=== PATIENT | male | born 1960 | race Caucasian/White ===

== ENCOUNTER 2018-07-23 15:00 | Inpatient (IN) | payer BC ==
--- NOTE | 2018-07-22 12:56 | HP ---
HISTORY AND PHYSICAL: DATE OF ADMISSION/SURGERY: 07/30/18 DATE OF OFFICE VISIT: 07/22/18 SURGEON: Trini Khanna MD* (dictated by KAUSHAL Lewis) PROCEDURE: Left total hip arthroplasty. CHIEF COMPLAINT: Left hip pain. HISTORY OF PRESENT ILLNESS: Mr. Arizmendi is a 57-year-old gentleman with complaints of left hip pain. He has failed conservative treatment and elected to proceed with the left total hip arthroplasty. PAST MEDICAL HISTORY: High cholesterol, chronic low back pain, Castle's esophagus, GERD, BPH, and sleep apnea. PAST SURGICAL HISTORY: Lumbar fusion, deviated septum surgery, hernia repair, tonsillectomy, appendectomy. CURRENT MEDICATIONS: 1. Flexeril 10 mg q.h.s. 2. Vitamin D3. 3. Vitamin C. 4. Pantoprazole sodium 40 mg twice a day. 5. JANKI-e 400 mg twice a day. 6. Vitamin B12. 7. Flomax 0.4 mg daily. 8. CoQ10. 9. Rosuvastatin calcium 5 mg at bedtime. 10. Hydromorphone 4 mg 3 times a day. 11. Ginseng 1000 mg a day. 12. Magnesium 500 mg a day. 13. Tylenol as needed. 14. Pristiq 100 mg daily. ALLERGIES: No known drug allergies. FAMILY HISTORY: Coronary artery disease and cancer. SOCIAL HISTORY: He is a 57-year-old gentleman, lives with his . He denies use of tobacco or illicit drugs. REVIEW OF SYSTEMS: A complete 14-point review of systems was reviewed with the patient and is positive for GERD. He denies any history of DVT, PE, hepatitis, HIV or anesthesia problems. PHYSICAL EXAMINATION GENERAL: He is well developed, well nourished, in no acute distress. VITAL SIGNS: He stands 6 feet 3 inches tall, weighs 240 pounds. His blood pressure is 112/70, his heart rate is 75. HEENT: Normocephalic, atraumatic. NECK: Supple. No palpable lymph nodes. PULMONARY: The lungs are clear to auscultation bilaterally. CARDIO: Regular rate and rhythm. Strong S1 and S2. ABDOMEN: Soft, nontender, nondistended. NEUROLOGICAL: He is alert and oriented x3. MUSCULOSKELETAL: Left lower extremity: The skin is intact. There are no open wounds or abrasions. He walks with an antalgic-type gait, favoring his left hip. He has decreased internal and external rotation of the hip. He has a 2+ dorsalis pedis pulse. Intact sensation in his lower extremity. Muscle group strengths are intact at 5/5. ASSESSMENT AND PLAN: Mr. Arizmendi is a 57-year-old gentleman with end-stage osteoarthritis of the left hip. He has failed conservative treatment and elected to proceed with a left total hip arthroplasty. The surgery is scheduled for 07/30/[address] Khanna discussed the risks and benefits of the surgery at today's visit and all of his questions were answered. He will follow up with Dr. Khanna in 2 weeks after the surgery. KAUSHAL LEWIS [id number]/[facility] #: [id number] MTDD
[2018-07-26] MEDS ORDERED: Buffered Lidocaine 1% SYRIN* 1 ML/SYRINGE INTRADERM ONE (12:13)
[2018-07-30] MEDS ORDERED: Dexamethasone IV* 4 MG/ML 1 ML (4 MG) IV SLOW PU ONE (06:00)
[2018-07-30] MEDS ORDERED: Ondansetron INJ* 2 MG/ML VIAL IV ONE (06:00)
[2018-07-30] MEDS ORDERED: Famotidine IV* 10 MG/ML 2 ML (20 mg) IV ONE (06:00)
[2018-07-30] MEDS ORDERED: Lactated Ringers 1000 ML Bag* 1,000 ML IV SCH (06:00)
[2018-07-30] MEDS ORDERED: Gabapentin CAP(*) 300 MG PO ONE (06:00)
--- NOTE | 2018-09-10 11:44 | HP ---
AMENDED REPORT NOW INCLUDES DESIGNATED COSIGNER HISTORY AND PHYSICAL: DATE OF SURGERY: 09/19/18 DATE OF OFFICE VISIT: 09/09/18 SURGEON: Trini Khanna MD.* (DICTATED BY KAUSHAL LEWIS) PROCEDURE: Left total hip arthroplasty. CHIEF COMPLAINT: Left hip pain. HISTORY OF PRESENT ILLNESS: Mr. Arizmendi is a 58-year-old gentleman with continued complaints of left hip pain. He has failed conservative treatment and elected to proceed with a left hip total arthroplasty. PAST MEDICAL HISTORY: High cholesterol, Castle's esophagus, and WALT. PAST SURGICAL HISTORY: L4-S1 fusion, deviated septum surgery, hernia repair, appendectomy, tonsillectomy. CURRENT MEDICATIONS: 1. Flexeril 10 mg as needed. 2. Vitamin D3. 3. Vitamin C. 4. Pantoprazole sodium 40 mg twice a day. 5. Vitamin B12. 6. Flomax 0.4 mg daily. 7. Desvenlafaxine 50 mg daily. 8. CoQ10. 9. Rosuvastatin calcium 5 mg at bedtime. 10. Hydromorphone 4 mg 1 to 2 tabs every 6 hours as needed. 11. Ginseng. 12. Magnesium. 13. Tylenol. ALLERGIES: No known drug allergies. FAMILY HISTORY: Cancer, coronary artery disease, and MS. SOCIAL HISTORY: He is 58 years old. He lives with his . Does not smoke or use drugs. Uses occasional alcohol. REVIEW OF SYSTEMS: A complete 14-point review of systems is reviewed with the patient, was all negative, but noncontributory. He denies history of a DVT, PE , hepatitis, HIV or anesthesia problems. PHYSICAL EXAMINATION GENERAL: He is well developed, well nourished, in no acute distress. VITAL SIGNS: He stands 75 inches tall, weighs 240 pounds. Blood pressure is 112/70, heart rate is 75. HEENT: Normocephalic, atraumatic. NECK: Supple. No palpable lymph nodes. PULMONARY: Lungs are clear to auscultation bilaterally. CARDIO: Regular rate and rhythm. Strong S1 and S2. ABDOMEN: Soft, nontender, nondistended. NEUROLOGIC: He is alert and oriented x3. MUSCULOSKELETAL: Left lower extremity: The skin is intact. There are no open wounds or abrasions. He walks with an antalgic type gait favoring his left hip. He has decreased internal and external rotation of the legs. He is able to dorsiflex and plantar flex. He has a 2+ dorsalis pedis pulse. ASSESSMENT AND PLAN: Mr. Arizmendi is a 58-year-old gentleman with end-stage osteoarthritis of the left hip. He has failed conservative treatment and elected to proceed with a left total hip arthroplasty. The surgery is scheduled for 09/19/[address] Khanna discussed the risks and benefits of the surgery at today's visit and all of his questions were answered. He will follow up with Dr. Khanna 2 weeks after the surgery KAUSHAL LEWIS [id number]/[facility] #: [id number] MTDD
[2018-09-18] MEDS ORDERED: Buffered Lidocaine 1% SYRIN* 1 ML/SYRINGE INTRADERM ONE (11:12)
[2018-09-19] MEDS ORDERED: Tranexamic Acid 1,000 MG in NS 0.9% 50 ML* (outpatient use) IV SCH ×2
--- OUTSIDE RECORDS SUMMARY | 2018-09-19 05:39 | XMS REPORT | Continuity of Care Document ---
:1960 External Reference #:[id number] Author Name Esperanza Swain Care Team Providers Name Role Phone Charly Traylor MD Primary Care Physician Unavailable Payers Date Identification Numbers Payment Provider Subscriber Policy Number: [id number] [facility] Marilee Ratliff PayID: [id number] [address] [place] [address] Expires: 2016 Policy Number: [id number] [facility] Anette Schwarz Group Number: [id number] [address] PayID: [id number] [place] [address] Problems Active Problems Provider Date Localized, primary osteoarthritis of the pelvic Trini Khanna M.D. Onset: region and thigh Localized, primary osteoarthritis Trini Khanna M.D. Onset: 08/15/2017 Spinal stenosis of lumbar region Arvind Toledo M.D. Onset: 04/28/2015 Degeneration of lumbar intervertebral disc Arvind Toledo M.D. Onset: 2015 Lumbosacral spondylosis without myelopathy Mor Blackwood M.D. Onset: 2013 Inflammatory and toxic neuropathy Mor Blackwood M.D. Onset: 07/10/2013 Immunological Findings Nonspecified Other & Mor Blackwood M.D. Onset: 2013 Unspecified Multiple joint pain Mor Blackwood M.D. 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 ETOH Use He has cut down on smoking Tobacco Use Reviewed: 10/19/16 Patient has never smoked Recreational Drug Use Regularly uses Marijuana Tobacco Use Start: Unknown Patient has never smoked smokes marijuana to treat nausea Smoking Status Reviewed: 09/09/18 Patient has never smoked Exercise Type/Frequency Exercises regularly Allergies, Adverse Reactions, Alerts Description No Known Drug Allergies Medications Active Medications SIG Qnty Indications Ordering Date Provider Acetaminophen per day Unknown 3000mg-4000mg Magnesium once a day Unknown 500mg Capsules Ginseng Unknown 1000mg Capsules Hydromorphone HCL 1-2 tablet q6 Unknown 4mg hours for pain Tablets as needed Rosuvastatin Calcium 1 by mouth Unknown 5mg every night at Tablets bedtime Co Q10 1 by mouth Unknown 400mg Capsules every day Desvenlafaxine 1/day Unknown Succinate ER 50mg Tablets ER 24HR Flomax 1 by mouth Unknown 0.4mg Capsules every day B-12 1 po daily Unknown 5000mcg Tablets Esvin-E 1 by mouth bid Unknown 400mg Tablets Pantoprazole Sodium 1 by mouth bid 90units Unknown 40mg Solution Rec Vitamin C 1 by mouth Unknown 1000mg Tablets every day Vitamin D3 1 tab by mouth 8tabs Unknown 8000Unit Tablets every day Flexeril 1 by mouth qhs 60tabs Unknown 10mg Tablets History Medications Zinc-220 Take one 90caps Cruz Walker, 01/06/2017 - capsule/tablet daily M.D. 08/14/2017 220(50Zn) mg by mouth Capsules Nabumetone 1 by mouth twice a 60tabs 719.49 Mor Blackwood, 05/20/2013 - day M.D. 09/02/2013 750mg Tablets Axiron 1 pump each underarm 60doses Unknown - 30mg/Act every day 04/12/2015 Solution Effexor XR 1 by mouth every day Unknown - 10/19/2016 150mg Caps Hydrocodone/Aceta 1 by mouth as needed 120tabs Unknown - minophen 10/19/2016 10-650mg Tablets Caffeine 1 po as needed Unknown - 200mg 10/19/2016 Tablets Extra Strength 1500mg-2000mg/day Unknown - Pain Relief 08/14/2017 500mg Tablets Medications Administered in Office Medication SIG Qnty Indications Ordering Provider Date Depomedrol 40MG Trini Khanna M.D. 04/12/2018 Injection Depomedrol 40MG Trini Khanna M.D. 08/20/2017 Injection Vital Signs Date Vital Result Comment 09/09/2018 2:46pm Height 75 inches 6'3" Weight 245.00 lb BP Systolic 111 mmHg BP Diastolic 84 mmHg Respiratory Rate 16 /min Pain Level 9 BMI (Body Mass Index) 30.6 kg/m2 07/22/2018 8:38am Height 75 inches 6'3" Weight 240.00 lb Heart Rate 75 /min BP Systolic 112 mmHg BP Diastolic 70 mmHg Body Temperature 97.4 F BMI (Body Mass Index) 30.0 kg/m2 06/21/2018 1:42pm Height 75 inches 6'3" Weight 238.00 lb Heart Rate 80 /min BP Systolic 132 mmHg BP Diastolic 80 mmHg Respiratory Rate 14 /min Pain Level 7 BMI (Body Mass Index) 29.7 kg/m2 04/12/2018 10:09am Height 75 inches 6'3" Weight 240.00 lb Heart Rate 73 /min BP Systolic 134 mmHg BP Diastolic 70 mmHg Respiratory Rate 16 /min Body Temperature 97.6 F Pain Level 7 BMI (Body Mass Index) 30.0 kg/m2 09/10/2017 2:55pm Height 75 inches 6'3" Weight 240.00 lb BP Systolic 124 mmHg BP Diastolic 82 mmHg Body Temperature 97.8 F Pain Level 8 BMI (Body Mass Index) 30.0 kg/m2 08/20/2017 4:18pm Height 75 inches 6'3" Weight 238.00 lb BP Systolic 118 mmHg BP Diastolic 82 mmHg Body Temperature 97.2 F BMI (Body Mass Index) 29.7 kg/m2 08/15/2017 10:28am Height 75.75 inches 6'3.75" Weight 242.00 lb Heart Rate 76 /min BP Systolic 120 mmHg BP Diastolic 80 mmHg BMI (Body Mass Index) 29.6 kg/m2 10/19/2016 2:59pm Height 75.5 inches 6'3.50" Weight 238.00 lb Heart Rate 64 /min BP Systolic Sitting 120 mmHg BP Diastolic Sitting 74 mmHg Respiratory Rate 14 /min Pain Level 4 BMI (Body Mass Index) 29.4 kg/m2 04/28/2015 3:18pm Height 75.5 inches 6'3.50" Weight 251.00 lb Heart Rate 70 /min BP Systolic Sitting 150 mmHg BP Diastolic Sitting 80 mmHg Pain Level 9 BMI (Body Mass Index) 31.0 kg/m2 04/12/2015 2:59pm Height 75.5 inches 6'3.50" Weight 251.00 lb Heart Rate 76 /min BP Systolic Sitting 150 mmHg BP Diastolic Sitting 84 mmHg Pain Level 5 BMI (Body Mass Index) 31.0 kg/m2 11/04/2013 2:33pm Height 75.5 inches 6'3.50" Weight 239.00 lb Heart Rate 76 /min BP Systolic Sitting 120 mmHg BP Diastolic Sitting 70 mmHg Respiratory Rate 16 /min BMI (Body Mass Index) 29.5 kg/m2 09/04/2013 10:13am Height 75.5 inches 6'3.50" Weight 239.00 lb Heart Rate 80 /min BP Systolic Sitting 136 mmHg BP Diastolic Sitting 84 mmHg Respiratory Rate 16 /min BMI (Body Mass Index) 29.5 kg/m2 07/10/2013 1:40pm Height 75.5 inches 6'3.50" Weight 240.50 lb Heart Rate 88 /min BP Systolic Sitting 116 mmHg BP Diastolic Sitting 82 mmHg BMI (Body Mass Index) 29.7 kg/m2 05/20/2013 3:07pm Height 75.5 inches 6'3.50" Weight 245.00 lb Heart Rate 82 /min BP Systolic 128 mmHg BP Diastolic 80 mmHg BMI (Body Mass Index) 30.2 kg/m2 Results Test Date Facility Test Result H/L Range Note Inr/Protime 07/22/2018 [facility] Inr 0.94 N 0.82-1.09 1, [address] [place] [address] [phone] Laboratory test 07/22/2018 [facility] Partial 31.7 seconds N 26.0-36.[address] [place] [address] PTT [phone] Comp Metabolic 07/22/2018 [facility] Sodium 138 mmol/L N 135- [address] [place] [address] [phone] Potassium 4.4 mmol/L N 3.5-5.0 Chloride 105 mmol/L N 101-111 Co2 Carbon Dioxide 26 mmol/L N 22-32 Anion Gap 7 mmol/L N 2-11 Glucose 144 mg/dL High 70-100 Blood Urea Nitrogen 23 mg/dL N 6-24 Creatinine 0.85 mg/dL N 0.67-1.17 BUN/Creatinine Ratio 27.1 High 8-20 Calcium 9.5 mg/dL N 8.6-10.3 Total Protein 7.0 g/dL N 6.4-8.9 Albumin 4.6 g/dL N 3.2-5.2 Globulin 2.4 g/dL N 2-4 Albumin/Globulin Ratio 1.9 N 1-3 Total Bilirubin 1.30 mg/dL High 0.2-1.0 Alkaline Phosphatase 69 U/L N 34-104 Alt 25 U/L N 7-52 Ast 25 U/L N 13-39 Egfr Non- 92.9 >60 Egfr 112.4 >60 4 Type & Screen 07/22/2018 [facility] Patient Blood Type O Positive [address] [place] [address] [phone] Antibody Screen NEGATIVE Urinalysis Profile 07/22/2018 [facility] Urine Color Yellow [address] [place] [address] [phone] Urine Appearance Clear Urine Specific Marion 1.026 N 1.010-1.030 Urine pH 5.0 N 5-9 Urine Urobilinogen Negative Negative Urine Ketones Negative Negative Urine Protein Negative Negative Urine Leukocytes Negative Negative Urine Blood Negative Negative Urine Nitrite Negative Negative Urine Bilirubin Negative Negative Urine Glucose Negative Negative Urine Culture And 07/22/2018 [facility] Urine Culture SEE RESULT [address] [place] [address] [phone] Laboratory test 01/01/2017 [facility] Aso Negative N <[address] (Antistreptol IU/mL Iu/[place] [address] ysin O) Titer [phone] Angiotensin Converting Enzyme 37 U/L N 8 - 53 7 Anca Panel For 01/01/2017 [facility] Myeloperoxidase AB < 0.2 U N [address] [place] [address] [phone] Proteinase 3 AB < 0.2 U N 9 Celiac Panel 01/01/2017 [facility] Tissue Transglutaminase <1.2 U/mL N [address] [place] [address] [phone] Immunoglobulin A 175 mg/dL N 61 - 356 Celiac Interpretation See Comment N 11 Laboratory 01/01/2017 [facility] Zinc Level 0.59 Abnormal 0.66 -1.10 12 test finding [address] g/[place] [address] [phone] Ehrlichia 01/01/2017 [facility] Anaplasma 1:128 N <1:64 13 Igg/Igm Ifa [address] [place] [address] IgG [phone] Ehrlichia chaffeensis IgG AB <1:64 titer N <1:64 14 Babesia Microti Abs 01/01/2017 [facility] Babesia microti <1:64 N (Igg,Igm) [address] [place] [address] [phone] Babesia microti IgM <1:20 N Babesia microti Interpretation See Comment N 15 Vitamin D 1,25 01/01/2017 [facility] Vitamin D 72.0 ng/mL High 20-50 And Vitamin D,[address] Total 25(Oh) [place] [address] [phone] Vitamin D, 1,25 Dihydroxy 46 pg/mL N 18-64 16 Vitamin B6 01/01/2017 [facility] Pyridoxal 5-Phosphate 6 g/L N 5-[address] [place] [address] [phone] Pyridoxic Acid 3 g/L N 3-30 18 Laboratory test 01/01/2017 [facility] Rheumatoid Factor <15 IU/ mL N <15 [address] [place] [address] [phone] Cyclic Citrullinated Pep Igg <15.6 U N 20 Hepatitis 01/01/2017 [facility] Hepatitis C Nonreactive N Nonreactive 21 Acute Panel [address] [place] [address] [phone] Hepatitis A AB Igm Nonreactive N Nonreactive 22 Hepatitis B Core AB Igm Nonreactive N Nonreactive 23 Hepatitis B Surface Ag Nonreactive N Nonreactive 24 Laboratory test 01/01/2017 [facility] Vitamin B12 > 1450 High 180-914 [address] pg/[place] [address] [phone] Laboratory test 11/21/2013 [facility] Creatine 97 U/L N 10- [address] [place] [address] [phone] Anti Ssa/Ro Antibody <0.2 U N 26 SS-B/La Antibody <0.2 U N 27 Hepatitis Acute Panel 06/06/2013 Hepatitis C Antibody Nonreactive N Nonreactive Hepatitis A AB IgM Nonreactive N Nonreactive Hepatitis B Core IgM Nonreactive N Nonreactive Hepatitis B Surface Antigen Nonreactive N Nonreactive Laboratory test finding 06/06/2013 Uric Acid 6.1 mg/dL N 4.4-7.6 Rheumatoid Factor <15 IU/mL N <15 28 Hla B27 06/06/2013 Hla B27 Negative N 29 Hla B27 Interp See Comment N 30 Laboratory test finding 06/06/2013 C Reactive Protein 1.90 mg/L N < 5.00 31 Erythrocyte Sed Rate 7 mm/Hr N 0-20 Nanci (Anti-Nuclear AB) Screen Negative N Negative Lima Screen Negative N Negative 32 Cyclic Citrullinated Pept IgG <15.6 U N 33 Comp Metabolic Panel 06/06/2013 Sodium 141 mmol/L N 133-145 Potassium 4.3 mmol/L N 3.7-5.6 Chloride 106 mmol/L N 101-111 Co2 Carbon Dioxide 29 mmol/L N 22-32 Anion Gap 6 mmol/L N 2-11 Glucose 101 mg/dL High 70-100 Blood Urea Nitrogen 13 mg/dL N 6-24 Creatinine 0.83 mg/dL N 0.67-1.17 BUN/Creatinine Ratio 15.7 N 8-20 Calcium 9.7 mg/dL N 8.6-10.3 Total Protein 7.3 g/dL N 6.4-8.9 Albumin 4.7 g/dL N 3.2-5.2 Globulin 2.6 g/dL N 2-4 Albumin/Globulin Ratio 1.8 N 1-3 Total Bilirubin 0.90 mg/dL N 0.2-1.0 Alkaline Phosphatase 68 U/L N 34-104 Alt 40 U/L N 7-52 Ast 23 U/L N 13-39 Egfr Non- 97.3 N >60 Egfr 125.1 N >60 34 CBC Auto Diff 06/06/2013 White Blood Count 6.4 10^3/uL N 4.8-10.8 Red Blood Count 5.18 10^6/uL N 4.0-5.4 Hemoglobin 16.3 g/dL N 14.0-18.0 Hematocrit 46 % N 42-52 Mean Corpuscular Volume 89 fL N 80-94 Mean Corpuscular Hemoglobin 31 pg N 27-31 Mean Corpuscular HGB Conc 35 g/dL N 31-36 Red Cell Distribution Width 13 % N 10.5-15 Platelet Count 360 10^3/uL N 150-450 Mean Platelet Volume 8 um3 N 7.4-10.4 Abs Neutrophils 3.0 10^3/uL N 1.5-7.7 Abs Lymphocytes 2.7 10^3/uL N 1.0-4.8 Abs Monocytes 0.5 10^3/uL N 0-0.8 Abs Eosinophils 0.2 10^3/uL N 0-0.6 Abs Basophils 0 10^3/uL N 0-0.2 Abs Nucleated RBC 0 10^3/uL N Granulocyte % 46.8 % N 38-83 Lymphocyte % 41.7 % N 25-47 Monocyte % 7.6 % N 1-9 Eosinophil % 3.4 % N 0-6 Basophil % 0.5 % N 0-2 Nucleated Red Blood Cells % 0.1 N 1 AA 07/30 2 Standard intensity warfarin therapeutic range: 2.0-3.0 High intensity warfarin therapeutic range: 2.5-3.5 3 AA 07/30 4 Because ethnic data is not always readily available, this report includes an eGFR for both -Americans and non- Americans. The National Kidney Disease Education Program (NKDEP) does not endorse the use of the MDRD equation for patients that are not between the ages of 18 and 70, are , have extremes of body size, muscle mass, or nutritional status, or are non- or non-. According to the National Kidney Foundation, irrespective of diagnosis, the stage of the disease is based on the level of kidney function: Stage Description GFR(mL/min/1.73 m(2)) 1 Kidney damage with normal or decreased GFR 90 2 Kidney damage with mild decrease in GFR 60-89 3 Moderate decrease in GFR 30-59 4 Severe decrease in GFR 15-29 5 Kidney failure <15 (or dialysis) 5 SEE RESULT BELOW Name: MARILEE RATLIFF : [address]: Trini Khanna MD Acct: [id number] Unit: [id number] AGE: 57 Location: [facility] Re07/22/18 SEX: M Status: REG REF SPEC: [id number] LAZARO: 07/22/[address] [facility] [address]: Trini Khanna MD REQ: [id number] RECD: 07/22/18 STATUS: COMP _ SOURCE: URINE SPDESC: ORDERED: Urine Culture QUERIES: Urine Source: Clean Catch Procedure Result Reported Site Urine Culture Final 07/23/18- 1326 ML No Growth (<1,000 CFU/mL) * ML - Main Lab . END OF REPORT DEPARTMENT OF PATHOLOGY, [address] [place] [address] Checo Mccrary M.D. Director [facility] # [id number] 6 Normal values may vary with age, season and geographic area. Titers above upper limits may be indicative of infection, however only a two dilution rise in titer is required to be considered significant. ASO titer will usually rise above upper limits within one week of exposure, increase to peak levels at 3-5 weeks and return to baseline level at 6-12 twelve months. 7 Test Performed by: [facility] - [address] [address] 8 REFERENCE VALUE <0.4 (Negative) 9 REFERENCE VALUE <0.4 (Negative) Test Performed by: [facility] - [address] [address] 10 REFERENCE VALUE <4.0 (Negative) Test Performed by: [facility] - [address] [address] 11 Negative serology. Celiac disease unlikely. However, approximately 10% of patients with celiac disease are seronegative. Also, patients who are already adhering to a gluten-free diet may be seronegative. If celiac disease is highly clinically suspected, consider HLA-DQ typing. Test Performed by: [facility] - [address] [address] 12 ADDITIONAL INFORMATION This test was developed and its performance characteristics determined by [facility] in a manner consistent with CLIA requirements. This test has not been cleared or approved by the U.S. Food and Drug Administration. Test Performed by: [facility] - [address] [address] 13 ADDITIONAL INFORMATION This test was developed using an analyte specific reagent. Its performance characteristics were determined by [facility] in a manner consistent with CLIA requirements. This test has not been cleared or approved by the U.S. Food and Drug Administration. 14 ADDITIONAL INFORMATION This test was developed using an analyte specific reagent. Its performance characteristics were determined by [facility] in a manner consistent with CLIA requirements. This test has not been cleared or approved by the U.S. Food and Drug Administration. Test Performed by: [facility] - [address] [address] 15 ANTIBODY NOT DETECTED REFERENCE RANGES: IgG <1:64 IgM <1:20 Elevated antibody levels to B. microti indicate exposure to the organism. Human babesiosis infection is transmitted by the bite of an infected Ixodes tick or less frequently from transfusion with blood from an infected donor. Definitive diagnosis is made by identifying intraerythrocytic organisms in peripheral blood. In patients with low parasitemia, antibody detection by IFA is recommended. IgG levels greater than or equal to 1:1024 can be detected in acute phase patients with parasites in blood smears. The IFA assay can be used as a seroepidemiologic tool to study the frequency and distribution of B. microti in endemic areas especially in persons with mixed infections also involving Borrelia burgdorferi. This test was developed and its analytical performance characteristics have been determined by [facility]. It has not been cleared or approved by FDA. This assay has been validated pursuant to the CLIA regulations and is used for clinical purposes. Test Performed by: [facility] [id number] [place] [address] 16 ADDITIONAL INFORMATION This test was developed and its performance characteristics determined by [facility] in a manner consistent with CLIA requirements. This test has not been cleared or approved by the U.S. Food and Drug Administration. Test Performed by: [facility] - [address] [address] 17 ADDITIONAL INFORMATION This test was developed and its performance characteristics determined by [facility] in a manner consistent with CLIA requirements. This test has not been cleared or approved by the U.S. Food and Drug Administration. 18 ADDITIONAL INFORMATION This test was developed and its performance characteristics determined by [facility] in a manner consistent with CLIA requirements. This test has not been cleared or approved by the U.S. Food and Drug Administration. Test Performed by: [facility] - [address] [address] 19 Test Performed by: [address] [address] 20 REFERENCE VALUE <20.0 (Negative) Test Performed by: [place] [address] 21 Please add on PLEASE NOTE THERE ARE TWO OPEN ORDERS FOR THIS PATIENT. PLEASECOMBINE. THANK YOU. 22 Please add on PLEASE NOTE THERE ARE TWO OPEN ORDERS FOR THIS PATIENT. PLEASECOMBINE. THANK YOU. 23 Please add on PLEASE NOTE THERE ARE TWO OPEN ORDERS FOR THIS PATIENT. PLEASECOMBINE. THANK YOU. 24 Please add on PLEASE NOTE THERE ARE TWO OPEN ORDERS FOR THIS PATIENT. PLEASECOMBINE. THANK YOU. 25 Normal Range 180 to 914 Indeterminate Range 145 to 180 Deficient Range <145 26 -- REFERENCE VALUE -- <1.0 (Negative) Test Performed by: [place] [address] Cost Manager: Augustin Sotomayor III, M.D. 27 -- REFERENCE VALUE -- <1.0 (Negative) Test Performed by: [place] [address] Cost Manager: Augustin Sotomayor III, M.D. 28 Test Performed by: [place] [address] Cost Manager: Augustin Sotomayor III, M.D. 29 -- REFERENCE VALUE -- Not Applicable 30 RESULT: HLA-B27 antigen was not detected. Method: Flow Cytometry Performing Laboratory CLIA# [id number] Test Performed by: [place] [address] Cost Manager: Augustin Sotomayor III, M.D. 31 Acute inflammation: >10.00 32 The above LIMA screen is designed for the detection of antibodies to extractable nuclear antigen (LIMA) in human serum. It is a combination test for the detection of antibodies to TESTER ROCKET [employer]INE, Sm, SS-A (Ro), and SS-B (La) nuclear antigens. 33 -- REFERENCE VALUE -- <20.0 (Negative) Test Performed by: [place] [address] Cost Manager: Augustin Sotomayor III, M.D. 34 Because ethnic data is not always readily available, this report includes an eGFR for both -Americans and non- Americans. The National Kidney Disease Education Program (NKDEP) does not endorse the use of the MDRD equation for patients that are not between the ages of 18 and 70, are , have extremes of body size, muscle mass, or nutritional status, or are non- or non-. According to the National Kidney Foundation, irrespective of diagnosis, the stage of the disease is based on the level of kidney function: Stage Description GFR(mL/min/1.73 m(2)) 1 Kidney damage with normal or decreased GFR 90 2 Kidney damage with mild decrease in GFR 60-89 3 Moderate decrease in GFR 30-59 4 Severe decrease in GFR 15-29 5 Kidney failure <15 (or dialysis) Procedures Date Code Description Status 04/12/2018 Inj/Aspir Major JT Or Bursa W/ US Completed 08/20/2017 Inj/Aspir Major JT Or Bursa W/ US Completed 11/04/2013 97219 Nerve Conduction 07-08 Studies Completed 11/04/2013 72744 Needle Electromyography Complete, Five Or More Muscles Completed Studied Encounters Type Date Location Provider Dx Diagnosis Office Visit 06/21/2018 Orthopedic Trini Khanna M25.552 Pain in left hip 1:30p [facility] M16.12 Unilateral primary osteoarthritis, left hip Office Visit 09/10/2017 2:45p [facility] Trini Khanna M25.552 Pain in left [facility] M.[facility] hip M16.12 Unilateral primary osteoarthritis, left hip Office Visit 08/15/2017 10:00a [facility] Trini Khanna M25.562 Pain in left [facility] M.D. knee M17.12 Unilateral primary osteoarthritis, left knee M16.12 Unilateral primary osteoarthritis, left hip M25.552 Pain in left hip Office Visit 07/25/2017 3:20p [facility] Dermatology Tom Abraham MD L57.0 Actinic keratosis L82.1 Other seborrheic keratosis D18.01 Hemangioma of skin and subcutaneous tissue D23.71 Ot benign neoplasm skin/ right lower limb, including hip Office Visit 10/19/2016 Rheumatology Cruz M06.4 Inflammatory 3:00p [facility] Walker M.D. polyarthropathy G62.9 Polyneuropathy, unspecified R20.8 Other disturbances of skin sensation R76.0 Raised antibody titer Office Visit 04/28/2015 Neurosurgery Arvind M48.06 Spinal stenosis, 3:15p [facility] Toledo M.D. lumbar region Office Visit 04/12/2015 Neurosurgery Arvind M51.36 Other 3:00p [facility] Toledo M.D. intervertebral disc degeneration, lumbar region Office Visit 11/04/2013 Asim Faye 782.0 Skin Sensation 2:30p Services Of Jomar Grant M.D. 729.1 Myalgia & Myositis Unspec Office Visit 09/04/2013 10:00a Asim Neurologic Manda Faye 719.49 Pain [facility] Maynard M.D. 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 at [facility]09/19/2018 9:30 am - LEIGH Robb at [facility]09/19/2018 9:30 am - Dallas Vizcarra PA-C at [facility]09/19/2018 9:30 am - KAUSHAL Diego at [facility]09/19/2018 9:30 am - Trini Khanna M.D. at [facility]09/09/2018 - Trini Khanna M.D.M25.552 Pain in left hipFollow up:Follow up: 2 weeks after [id number] Unilateral primary osteoarthritis, left hip
[2018-09-19] MEDS ORDERED: Lactated Ringers 1000 ML Bag* 1,000 ML IV SCH (06:00)
[2018-09-19] MEDS ORDERED: Buffered Lidocaine 1% SYRIN* 1 ML/SYRINGE INTRADERM ONE (06:09)
[2018-09-19] MEDS ORDERED: ceFAZolin 2 GM in NS PREMIX(*) 2 GM/100 ML BAG IVPB ONE (06:09)
[2018-09-19] MEDS ORDERED: Propofol* 500 MG/50 ML BTL ONE (06:54)
[2018-09-19] MEDS ORDERED: Propofol* 10 MG/ML 20 ML BTL ONE ×2 (06:54→09:18)
[2018-09-19] MEDS ORDERED: ROPIVACAINE 5 MG/ML 30 ML BTL (0.5%) ONE (06:54)
[2018-09-19] MEDS ORDERED: Lidocaine 2% PF * 5 ML VIAL ONE ×2 (06:54→07:39)
[2018-09-19] MEDS ORDERED: KETAMINE HCL* 50 MG/ML 10 ML VIAL ONE (06:55)
[2018-09-19] MEDS ORDERED: Midazolam* 1 MG/ML 2 ML VIAL (2 MG) ONE (06:55)
[2018-09-19] MEDS ORDERED: Dexmedetomidine* 200 MCG/2 ML 2 ML VIAL ONE (06:55)
[2018-09-19] MEDS ORDERED: Bupivacaine 0.5% SDV PF* 30ML VIAL ONE (07:39)
[2018-09-19] MEDS ORDERED: Dexamethasone IV* 4 MG/ML 1 ML (4 MG) ONE (08:08)
[2018-09-19] MEDS ORDERED: EPHEDrine (Pressors)* 50 MG/ML VIAL ONE (08:23)
[2018-09-19] MEDS ORDERED: Phenylephrine 10 MG/ML VIAL* 1 ML VIAL ONE (08:27)
[2018-09-19] MEDS ORDERED: Bisacodyl SUPP* 10 MG SUPP PR PRN (10:27)
[2018-09-19] MEDS ORDERED: Acetaminophen TAB* 325 MG PO PRN (10:27)
[2018-09-19] MEDS ORDERED: Morphine INJ* 2 MG/ML 1 ML SYRINGE (TWO MG - NEW SYRINGE VERSION) IV PRN (10:27)
[2018-09-19] MEDS ORDERED: Ondansetron INJ* 2 MG/ML VIAL IV PRN (10:27)
[2018-09-19] MEDS ORDERED: Magnesium Hydroxide LIQ* 30 ML UDC PO PRN (10:27)
[2018-09-19] MEDS ORDERED: Polyethylene Glycol 3350* 17 GM PACKET PO PRN (10:27)
[2018-09-19] MEDS ORDERED: Cyclobenzaprine TAB* 10 MG PO PRN ×2 (10:27→21:45)
[2018-09-19] MEDS ORDERED: oxyCODONE/Acetamin 5/325 MG* TAB PO PRN (10:27)
[2018-09-19] MEDS ORDERED: diPHENhydraMINE IV* 50 MG/ML 1 ml VIAL (BENADRYL) IV PRN (10:27)
[2018-09-19] MEDS: oxyCODONE/Acetamin 5/325 MG* TAB PO PRN ×2 (12:49→20:29)
[2018-09-19] MEDS: oxyCODONE TAB* 5 MG TAB PO PRN ×2 (16:19→22:56)
[2018-09-19] MEDS: ceFAZolin 1 GM ADVAN(*) 1 GM in NS 0.9% 50 ML* 50 ML IVPB SCH ×2 (16:20→23:21)
--- NOTE | 2018-09-19 17:20 | PN ---
Progress Note - Progress Note Date of Service: 09/19/18 Note: Patient resting comfortably in bed with at bedside. He has minimal pain at this time. He has been out of bed for ambulation and already had a bowel movement. He denies SOB, CP or calf pain. He actively dorsiflexes/plantar flexes the left ankle, with intact sensation and 2+ DP pulse. Skin is warm and dry with brisk capillary refill. Well will continue to monitor.
[2018-09-19] MEDS ORDERED: Pantoprazole TAB * 40 MG TAB PO SCH (18:00)
[2018-09-19] MEDS: Tamsulosin CAP* 0.4 MG PO SCH (19:36)
[2018-09-19] MEDS: Magnesium Hydroxide LIQ* 30 ML UDC PO SCH (19:36)
[2018-09-19] MEDS: Docusate CAP* 100 MG PO SCH (19:36)
--- NOTE | 2018-09-19 20:51 | OP ---
Operative Report - Blank - Operative Report Date of Operation: 09/19/18 Note: MARILEE RATLIFF 1960 Date Of Surgery: 09/19/18 Trini Khanna MD Clinical Professor: Rima EASLEY did help throughout the procedure with preparation of the hip, wound retraction, manipulation of the hip, and wound closure. Anesthesiologist: Rima Peace MD Anesthesia Type: Spinal Preoperative Diagnosis: Left severe degenerative osteoarthritis of the hip Postoperative Diagnosis: As above Procedure Performed: Left Total Hip Arthroplasty Complications: None Specimen: Femoral head and acetabular reamings sent to pathology. Hardware used: This is uncemented [place] total hip arthroplasty hardware for the femur a size 7 accolade II with 127 neck angle femoral component, for the acetabulum a size 56 F trident II tritanium cluster hole shell with a single 15 mm screw, for the insert a size 40 F trident x3 polyethylene insert, and for the femoral head a size 40 + 0 ceramic V40 femoral head. Brief history/Indication: MARILEE RATLIFF was known in clinic and had a history of severe left hip pain. He failed conservative treatment with anti- inflammatories, pain pills, intra-articular injections and physical therapy. He elected to undergo left total hip arthroplasty due to continued pain and decreased quality of life. Radiographs showed severe end stage osteoarthritis of the hip with bone on bone contact. Informed consent was obtained from the patient. He understood the risks of surgery included but were not limited to: bleeding, infection, damage to nearby structures, intraoperative fracture, nerve palsy, failure of the hardware, early loosening, stiffness or loss of motion, dislocation, leg length discrepancy, anesthesia complications, stroke, heart attack, blood clot and . He wished to proceed. Intra-Operative findings: Intraoperatively the patient was noted to have severe loss of cartilage of the acetabulum and femoral head. Description of the Procedure: MARILEE RATLIFF was identified in the preanesthesia unit. His left hip was marked as the correct operative side. Informed consent was signed and placed in the chart. The patient was taken to the operating room and placed under anesthesia without complication. A chirinos catheter was placed. The patient was placed on the peg board with all bony prominences well padded. The left lower extremity was prepped and draped in the usual sterile fashion. Preoperative time-out was made to correctly identify the patient, side and site. Appropriate intraoperative antibiotics were given within one hour of incision. A standard posterior incision was made and carried sharply down to the lateral fascia. A new 10 blade was used to make an incision in the fascia in line with the skin incision. A charnley retractor was placed. The piriformis and conjoined tendons were identified and elevated off the posterolateral femur using electrocautery. These were tagged with number 5 Ethibond. Next electrocautery was used to make a posterolateral capsular flap and this was tagged with number 5 Ethibonds. The hip was carefully dislocated. Lesser trochanter to the center of the femoral head was measured at 60 mm. The oscillating saw was used to make the femoral neck cut. The femoral head was carefully removed. The femur was retracted anteriorly and the acetabular retractors were placed. Long-handled knife was used to sharply remove any remaining labrum from the acetabular rim. The acetabulum was sequentially reamed up to a size 55. A bleeding subchondral bone bed was obtained. A trial liner was placed and had excellent fit and stability. A 56 F trident II tritanium cluster hole acetabulum with a single 15 mm screw was placed and had excellent stability with appropriate anteversion and abduction angle. A size 40 F liner was impacted into the acetabular shell. The liner was checked for stability and was stable. Next attention was turned to preparation of the femoral canal. A canal finder was used to enter the proximal femur. The femoral canal was sequentially broached up to a size 7 femoral broach trial. A trial neck and 40 + 0 trial femoral head was chosen. Lesser trochanter to center of the femoral head measurement was satisfactory. The hip was reduced and taken through a range of motion. The hip was stable in all positions with good soft tissue tension and appropriate leg lengths. The hip was dislocated and all trials were removed. The final implant chosen was a size 7 accolade II with 127 neck angle. This stem was impacted into the femoral canal without difficulty. The stem was stable with appropriate anteversion. The femoral head chosen was a 40 +0 ceramic head. The head was impacted onto the femoral neck without difficulty. The final lesser trochanter to center of the femoral head measurement was satisfactory. The hip was reduced and taken through a range of motion. The hip was stable in all positions with good soft tissue tension and appropriate leg lengths. The hip was copiously irrigated with sterile saline. The previously tagged capsule and tendons were repaired to the posterolateral femur through two trochanteric drill holes. The lateral fascia layer was closed using number 1 vicryls. The rest of the incision was closed in a layered fashion using 0 and 2-0 vicryls. The skin was closed using 3-0 monocryl suture and Dermabond. Sterile adaptic, 4x4s and paper tape was used to cover the incision. The patients anesthesia was reversed without difficulty. He was taken to the PACU in stable condition. Intended weight-bearing will be as tolerated with posterior hip precautions.
[2018-09-19] MEDS: Lactated Ringers 1000 ML Bag* 1,000 ML IV SCH (20:59)
[2018-09-19] MEDS ORDERED: Cyclobenzaprine TAB* 10 MG PO ONE (22:00)
[2018-09-20] MEDS: oxyCODONE/Acetamin 5/325 MG* TAB PO PRN ×3 (03:03→13:10)
[2018-09-20] MEDS: oxyCODONE TAB* 5 MG TAB PO PRN (06:03)
[2018-09-20 06:10] LABS: Hematocrit 38 % (42-52); Mean Platelet Volume 7.8 fL (7.4-10.4); Platelet Count 286 10^3/uL (150-450)
[2018-09-20 06:19] LABS: BUN/Creatinine Ratio 23.6 (8-20); Calcium 8.9 mg/dL (8.6-10.3); EGFR African American 135.7 (>60); EGFR Non-African American 112.1 (>60); Potassium 3.8 mmol/L (3.5-5.0)
[2018-09-20] MEDS: Lactated Ringers 1000 ML Bag* 1,000 ML IV SCH (07:14)
[2018-09-20] MEDS: Magnesium Hydroxide LIQ* 30 ML UDC PO SCH (08:49)
[2018-09-20] MEDS: Tamsulosin CAP* 0.4 MG PO SCH (08:49)
[2018-09-20] MEDS: Docusate CAP* 100 MG PO SCH (08:49)
[2018-09-20] MEDS: ceFAZolin 1 GM ADVAN(*) 1 GM in NS 0.9% 50 ML* 50 ML IVPB SCH (08:49)
[2018-09-20] MEDS ORDERED: Apixaban* 2.5 MG TAB PO SCH (09:00)
[2018-09-20] MEDS ORDERED: Vitamin THERAPEUTIC TAB PO SCH (09:00)
[2018-09-20] MEDS ORDERED: CMCS: Desvenlafaxine (NF) 50 MG TAB PO SCH (09:00)
--- NOTE | 2018-09-20 10:34 | PN ---
Progress Note - Progress Note Date of Service: 09/20/18 SOAP: Subjective: [The pt was seen this am sitting in the chair. He states that he is doing well. Pt denies any chest pain, SOB, nausea, vomiting. He states that he may wish to go home this afternoon after he speaks with his . He sates that his pain is well controlled. ] Objective: [General: pt is alert and oriented x3, NAD. MSK, LLE: Inspection of the LLE reveals a dressing that is c/d/i. Calf is soft and nontender. 2+ DP pulse. NVI distally. ] Vital Signs Temp 98.5 F 09/20/18 07:47 Pulse 69 09/20/18 07:47 Resp 16 09/20/18 08:57 BP 103/55 09/20/18 07:47 Pulse Ox 96 09/20/18 07:47 Intake & Output 09/19/18 09/20/18 09/20/18 18:59 06:59 18:59 Intake Total 3250 2050 1400 Output Total 3075 2550 Balance 175 -500 1400 Intake: IV Fluids 2000 1080 ABX - CEFAZOLIN 55 LR 2000 1025 Oral 1250 2050 320 Output: Esquivel 2775 2550 Estimated Blood Loss 300 Assessment: [POD 1 left total hip arthroplasty ] Plan: [Finish the post op abx today Continue with PT Continue with current analgesic We will check back with him this afternoon to see if he feels ready to go home after PT Possible D/C today. ]
[2018-09-20 11:38] VITALS: BP 110/61
--- NOTE | 2018-09-20 13:30 | DS ---
Orthopedic Discharge Summary - Discharge Summary Date of Admission:09/19/18 Date of Discharge: 09/20/18 Date of Surgery: 09/19/2018 Attending Orthopedic Provider: Dr. Khanna Pre-operative Diagnosis: Left hip osteoarthritis Operative Procedure: Left total hip arthroplasty Disposition of Patient: Home Condition of Patient: Good History: MARILEE RATLIFF is a 58 year old M with years of increasingly severe left hip pain. Patient has failed conservative management and has elected to undergo a left total hip replacement Hospital Course: MARILEE was admitted to [facility] on 09/19/18. Patient underwent a left total hip arthroplasty without complication followed by a brief recovery in PACU and transfer to the Short Stay Surgical Unit in stable condition. Our hospitalist service, physical therapy and occupational therapy also participated in this patients care. Post-op day 1: patient was alert and in no acute distress. Dressing was clean, dry and intact. Dressing was changed, incision was clean, dry and intact. Operative extremity dorsiflexion and plantarflexion intact, sensation intact to light touch distally , DP2+. Patient was deemed to be medically and orthopedically stable for discharge. Physical therapy goals were met. Home Medications Medication Instructions Recorded Confirmed Type Ascorbic Acid TAB* [Vitamin C 1,000 mg PO QAM 08/14/13 09/19/18 History TAB*] Cyanocobalamin TAB* [Vitamin B12 5,000 mcg PO QPM 08/14/13 09/19/18 History TAB*] Pantoprazole Sodium [Protonix] 40 mg PO QPM 08/14/13 09/19/18 History S-Adenosylmethionine Sul Tosyl 400 mg PO BID 02/04/15 09/19/18 History [Esvin-E] Desvenlafaxine(NF) [Pristiq(NF)] 100 mg PO QAM 01/21/16 09/19/18 History Rosuvastatin Calcium [Crestor] 5 mg PO EVERY OTHER DAY 01/21/16 09/19/18 History Ubidecarenone [Coq10] 400 mg PO QAM 01/25/16 09/19/18 History Acetaminophen [Pain Reliever] 1,300 mg PO TID 07/22/18 09/19/18 History Cholecalciferol (Vitamin D3) 8,000 unit PO QAM 07/22/18 09/19/18 History [Vitamin D3] Ginseng Root 1,000 mg PO QPM 07/22/18 09/19/18 History Hydromorphone HCl 4 mg PO TID PRN 07/22/18 09/19/18 History Magnesium Oxide [Magnesium] 500 mg PO BID 07/22/18 09/19/18 History Tamsulosin HCl [Flomax] 0.4 mg PO BID 07/22/18 09/19/18 History Discharge Instructions following Orthopedic Surgery: Activity: * Weight Bearing as tolerated * Continue physical therapy and occupational therapy exercises as shown Hip replacements: Continue Hip Precautions- do not cross legs or bend greater than 90 degrees/squat Wound care: * OK to shower on post-op day 3, no bathing, swimming, or submerging wound. * Use gentle soap, pat dry. Cover with gauze, KARLENE wrap or tape. * Visiting home nurse to do wound checks. Call Orthopedic office for: * Increased drainage * Redness * Increased pain * Fever Go to ER with shortness of breath or chest pain. Diet: * Regular diet * Increase fluids and fiber to prevent constipation. * Continue to use stool softeners, call office if no bowel motion within 48 hours. Medications See Home Medication List in your packet for medications that you should take after discharge. DVT Prophylaxis: Eliquis Dosin.5 mg, 1 tab every 12 hours x 30 days Pain Control: Percocet Dosin/325 mg 1-2 tabs by mouth every 4-6 hours as needed for pain. Maximum of 10 tabs per day. Please note that Percocet contains Tylenol (acetaminophen). Maximum daily dose of Tylenol is 4000 mg from all sources. Antibiotics are required prior to any dental work. FOLLOW UP: Follow up with [Jey] Within 10-14 days, call for appointment Please call our office with any questions or concerns ([phone])
[2018-09-21] MEDS ORDERED: Atorvastatin* 10 MG TAB PO SCH (09:00)
== END 2018-09-20 15:20 | disposition home or self-care (01) | DRG 301 ==
LOC: AA 09-19 05:35 → SSU 09-19 11:26
PROVIDERS: ADMIT Orthopaedic Surgery Adult Reconstructive Orthopaedic Surgery; ATTEND Orthopaedic Surgery Adult Reconstructive Orthopaedic Surgery
PROC: 0SRB04A Replacement of Left Hip Joint with Ceramic on Polyethylene Synthetic Substitute, Uncemented, Open Approach (ICD-10-PCS; principal; 2018-09-19 07:30)
DX: M16.12 Unilateral primary osteoarthritis, left hip (principal); F33.9 Major depressive disorder, recurrent, unspecified; E78.00 Pure hypercholesterolemia, unspecified; K22.70 Barrett's esophagus without dysplasia; G47.33 Obstructive sleep apnea (adult) (pediatric); I25.10 Atherosclerotic heart disease of native coronary artery without angina pectoris; G89.29 Other chronic pain; M54.9 Dorsalgia, unspecified; K21.9 Gastro-esophageal reflux disease without esophagitis; M51.36 Other intervertebral disc degeneration, lumbar region; E55.9 Vitamin D deficiency, unspecified; N40.0 Benign prostatic hyperplasia without lower urinary tract symptoms; E78.2 Mixed hyperlipidemia; E29.1 Testicular hypofunction; G62.9 Polyneuropathy, unspecified; Z82.49 Family history of ischemic heart disease and other diseases of the circulatory system; Z98.1 Arthrodesis status; Z72.89 Other problems related to lifestyle; Z82.0 Family history of epilepsy and other diseases of the nervous system; Z80.7 Family history of other malignant neoplasms of lymphoid, hematopoietic and related tissues
CPT/HCPCS: 36415; 72170; 80048; 85014; 85018; 85049; 88304; 88311; A9270-GY; C1713; C1776; J0690; J1100; J2250; J2704; J2795; J3490